=== PATIENT | male | born 1980 | race Caucasian/White ===

== ENCOUNTER 2018-12-30 12:05 | Emergency (ER) | payer SELFPAY | END 2018-12-30 12:34 | disposition left against medical advice (07) | LOC: E/R 12:05 | DX: Z53.21 Procedure and treatment not carried out due to patient leaving prior to being seen by health care provider (principal) ==

== ENCOUNTER 2019-06-10 22:26 | Emergency (ER) | payer BC ==
[~2019-06-10] VITALS: Ht 180.3 cm; Wt 98.3 kg
[2019-06-10 22:35] VITALS: Ht 180.3 cm; Wt 98.3 kg
[2019-06-10] MEDS ORDERED: SOD CHLORIDE 0.9% 1,000 ML IV STA (22:50)
[2019-06-11 11:39] VITALS: BP 122/74; PULSE 58; RESP 18
== END 2019-06-11 12:50 | disposition short-term general hospital (02) ==
LOC: E/R 22:26
DX: R07.89 Other chest pain (principal); Z87.891 Personal history of nicotine dependence
CPT/HCPCS: 36415; 71045; 80053; 82550; 82553; 83880; 84484; 85025; 93005; 96360; J7030; Z7502